=== PATIENT | female | born 1975 | race Caucasian/White ===

== ENCOUNTER → 2021-10-28 | Day surgery (SDC) | payer OTHER ==
[~2021-10-28] MED LIST: DIPHENOXYLATE-1 EACH PO; HYDROCHLOROTHIA25 MG PO; LISINOPRIL40 MG PO
== END | disposition home or self-care (01) ==
LOC: OR 06:31
DX: R19.7 Diarrhea, unspecified (principal); R10.13 Epigastric pain; R13.10 Dysphagia, unspecified; J45.909 Unspecified asthma, uncomplicated; F17.200 Nicotine dependence, unspecified, uncomplicated; Z88.1 Allergy status to other antibiotic agents
CPT/HCPCS: J2001; J2704

== ENCOUNTER → 2021-11-18 | Day surgery (SDC) | payer OTHER ==
[~2021-11-18] VITALS: Ht 175.3 cm; Wt 90.3 kg
[~2021-11-18] MED LIST changes: +PROTONIX40 MG PO
== END | disposition home or self-care (01) ==
LOC: OR 08:37
DX: K22.2 Esophageal obstruction (principal); J44.9 Chronic obstructive pulmonary disease, unspecified; M19.90 Unspecified osteoarthritis, unspecified site; I10 Essential (primary) hypertension; E66.3 Overweight; Z68.29 Body mass index [BMI] 29.0-29.9, adult; Z88.1 Allergy status to other antibiotic agents; Z79.899 Other long term (current) drug therapy
CPT/HCPCS: J2704; J7040